=== PATIENT | male | born 1980 | race Two or more races ===

== ENCOUNTER 2019-03-02 08:45 | Emergency (ER) | payer MEDICAID ==
[~2019-03-02] VITALS: Ht 175.3 cm; Wt 95.8 kg
[~2019-03-02 08:45] MED LIST: METH40TA2 PO
[2019-03-02 08:56] VITALS: BP 135/90
--- NOTE | 2019-03-02 09:08 | NUR ---
THIS IS A 39 YEAR OLD MALE WHO C/O OF WORSENING SCIATIC PAIN (HX OF), "I THINK I'M GETTING A SINUS INFECTION, MY EYES FEEL LIKE THEY'RE GOING TO POP OUT OF MY HEAD"
[2019-03-02] MEDS ORDERED: KETOROLAC 30 MG/1 ML IM ONE (09:30)
[2019-03-02] MEDS ORDERED: METHOCARBAMOL 750 MG TABLET PO ONE (09:30)
[2019-03-02] MEDS ORDERED: KETOROLAC 30 MG/1 ML ONE (09:39)
[2019-03-02] MEDS ORDERED: METHOCARBAMOL 500 MG TABLET ONE (09:40)
--- NOTE | 2019-03-02 09:45 | NUR ---
MEDICATED PER ORDERS, PT BACK PAIN IS 10/10
[2019-03-02] MEDS ORDERED: ONDANSETRON ODT 4 MG ONE (09:49)
[2019-03-02] MEDS ORDERED: ONDANSETRON ODT 4 MG PO PRN (10:00)
--- NOTE | 2019-03-02 10:11 | NUR ---
Patient/Caregiver given discharge instructions and they have confirmed that they understand the instructions. Patient ambulatory with steady gait.
== END 2019-03-02 10:13 | disposition home or self-care (01) ==
LOC: ED 09:23
DX: S39.012A Strain of muscle, fascia and tendon of lower back, initial encounter (principal); J01.00 Acute maxillary sinusitis, unspecified; F17.200 Nicotine dependence, unspecified, uncomplicated; X58.XXXA Exposure to other specified factors, initial encounter; Y93.89 Activity, other specified; Y92.89 Other specified places as the place of occurrence of the external cause; Y99.8 Other external cause status
CPT/HCPCS: 71046; 96372; 99283; J1885; Q0162

== ENCOUNTER 2019-11-25 06:55 | Emergency (ER) | payer MEDICAID ==
[~2019-11-25] VITALS: Ht 167.6 cm; Wt 94.9 kg
[2019-11-25] MEDS ORDERED: HYDROcodone/APAP 5/325 TABLET ONE (07:23)
[2019-11-25] MEDS ORDERED: ONDANSETRON ODT 4 MG ONE (07:23)
--- NOTE | 2019-11-25 07:27 | NUR ---
PT MEDICATED FOR PAIN.
[2019-11-25] MEDS ORDERED: ONDANSETRON ODT 4 MG PO ONE (07:30)
[2019-11-25] MEDS ORDERED: HYDROcodone/APAP 5/325 TABLET PO ONE (07:30)
[2019-11-25 07:56] VITALS: BP 124/78
--- NOTE | 2019-11-25 07:56 | NUR ---
Patient given discharge instructions and they have confirmed that they understand the instructions. Patient ambulatory with steady gait.
== END 2019-11-25 07:58 | disposition home or self-care (01) ==
LOC: ED 07:43
DX: K08.89 Other specified disorders of teeth and supporting structures (principal); R50.9 Fever, unspecified; R11.0 Nausea
CPT/HCPCS: 99283; Q0162

== ENCOUNTER 2020-03-03 08:07 | Emergency (ER) | payer MEDICAID ==
[~2020-03-03] VITALS: Ht 162.6 cm; Wt 91.8 kg
[2020-03-03 08:08] VITALS: BP 132/78
[2020-03-03] MEDS ORDERED: HYDROcodone/APAP 5/325 TABLET PO ONE (08:30)
--- NOTE | 2020-03-03 08:30 | NUR ---
ANNE TOBIAS AT BEDSIDE FOR EVALUATION
[2020-03-03] MEDS ORDERED: HYDROcodone/APAP 5/325 TABLET ONE (08:34)
== END 2020-03-03 09:22 | disposition home or self-care (01) ==
LOC: ED 08:52
DX: K02.9 Dental caries, unspecified (principal); K08.89 Other specified disorders of teeth and supporting structures; F17.210 Nicotine dependence, cigarettes, uncomplicated
CPT/HCPCS: 99283